=== PATIENT | male | born 1980 | race Caucasian/White ===

== ENCOUNTER 2022-09-05 07:25 | Outpatient (CLI) | payer OTHER, SELFPAY ==
--- NOTE | 2022-09-25 15:37 | WPDHOMESLEEP ---
Sleep Study - Home Unattended Date of Study: 09/05/22 Ordering Provider: CARLITOS Galloway Interpreting Provider: Marilee Moss, DO Home Sleep Study Type: Watch PAT Height: 1.83 m Weight: 104.326 kg Body Mass Index: 31.1 Neck Circumference (inches): 16.75 [place]: 12 Reason for Sleep Study Loud snoring, multiple nighttime awakenings Sleep History The patient is a 41-year-old male with anxiety, depression, hypertension, hyperlipidemia, tobacco use and previously diagnosed sleep apnea in 2009 that had a sleep study ordered by the Pulmonary group. The patient had a split night study on January 20, 2010 that showed an AHI of 54.2. He was titrated to CPAP 10 cm H2O. The patient works in [employer]. He frequently awakens from sleep short of breath. He rarely awakens at night with heartburn, belching or cough. He constantly snores loud enough that others complain. He constantly has trouble sleeping when he has a cold. He occasionally wakes up gasping for air throughout the night. He frequently has breathing problems at night observed by himself or others. He occasionally sweats excessively at night. He occasionally has heart palpitations or irregular heartbeats during the night. He rarely falls asleep during the day and never while driving. He denies sleep paralysis and cataplexy. He occasionally has trouble at school or work due to sleepiness. He rarely experiences vivid dreamlike scenes upon awakening or falling asleep. He rarely feels afraid of going to sleep. He rarely has nightmares. He rarely remembers his dreams. He occasionally has thoughts racing through his mind. He occasionally feels sad or depressed. He frequently has anxiety. He frequently has muscular tension. He denies noticing parts of his body jerk. He rarely kicks during the night. He occasionally has crawling and aching feelings in his legs. He rarely has leg pain during the night. He denies grinding his teeth during sleep and denies awakening with morning jaw pain. He is rarely bothered by pain during the day and rarely awakened by pain during the night. He occasionally wakes up feeling stiff in the morning. He occasionally wakes up with sore or achy muscles. He occasionally wakes up with pain in the neck, spine or other joints. He goes to bed at midnight on both weekdays and weekends. It takes him 15 minutes to fall asleep. He wakes up 3-4 times throughout the night to urinate and smoke. He can fall back asleep within 15 minutes. He wakes up between 7-8 a.m. on weekdays and between 9-10 a.m. on the weekends. He typically gets 6-7 hours of sleep per night. He will stay in bed for 5 minutes after waking up in the morning. He currently lives alone. He does not consume any caffeinated beverages within 2 hours of bedtime. He does not engage in physical exercise before bedtime. He will watch television before falling asleep. He will take naps in the afternoon or the evening but they are not refreshing. He drinks 2 caffeinated beverages per day. He smokes 1 pack cigarettes per day. He drinks 2 alcoholic beverages per day. He denies recreational drug use. [facility] Past Medical History Medical History BMI 33.0-33.9,adult Body mass index (bmi) 34.0-34.9, adult (11/18/18) Depression with anxiety Encounter for long-term (current) use of other medications Essential (primary) hypertension Hyperlipidemia Impingement syndrome of right shoulder NISH (obstructive sleep apnea) Tobacco use Family History Family History Mother Family history of osteoporosis Hypertension Hypophosphatasia Father Hypertension Cerebrovascular accident Social History Social History Smoking packs per day: 1 Smoking cigarettes per day: 20.0 Years smoked: 20 Smoking pack-years: 20.00 Smoking status: Current every day smoker Tobacco type: cigarettes
[2022-09-29 12:48] VITALS: BMI 31.1
--- NOTE | 2023-10-05 11:24 | SLEEP ---
pt choice inspire
== END 2022-09-06 12:45 | disposition home or self-care (01) ==
PROVIDERS: PCP Internal Medicine; Visit Provider Physician Assistant
DX: G47.33 Obstructive sleep apnea (adult) (pediatric) (principal)
CPT/HCPCS: 95800

== ENCOUNTER 2022-11-28 12:49 | Outpatient (CLI) | payer OTHER, SELFPAY ==
--- NOTE | 2022-11-28 12:51 | ECHO_ITS ---
Patient Info Name: Edy Ambriz Age: 42 years : 1980 Gender: Male Ht: 72 in Wt: 230 lbs BSA: 2.33 m2 HR: 73 bpm BP: 135 / 91 mmHg Technical Quality: Fair Exam Date: 11/28/2022 1:05 PM Exam Location: [facility] Patient Status: Outpatient Admit Date: 11/28/2022 Staff Ordering Physician: Ivette Maki PA-C Cardiology Nurse Practitioner: Morena Cerna RDCS Attending Provider: Ivette Maki PA-C Exam Type: CA echo doppler color flow Study Info Indications G47.31 - PRIMARY SLEEP APNEA Complete two-dimensional, color flow and Doppler transthoracic echocardiogram is performed. Summary 1. Complete two-dimensional, color flow and Doppler transthoracic echocardiogram is performed. 2. Left ventricular chamber dimension is normal. 3. Left ventricular systolic function is normal, estimated at 60-65%. 4. The left ventricular diastolic function is normal. 5. E/e' 7 is not elevated. 6. Global longitudinal strain is abnormal at -11.7%. 7. No pulmonary hypertension, estimated pulmonary arterial systolic pressure is 25 mmHg. Left Ventricle E/e' 7 is not elevated. Global longitudinal strain is abnormal at -11.7%. Left ventricular chamber dimension is normal. Left ventricular systolic function is normal, estimated at 60-65%. The left ventricular diastolic function is normal. Right Ventricle Right ventricular systolic function is normal and with normal TAPSE 1.9 cm. Right ventricular chamber dimension is normal. Left Atria Left atrial chamber dimension is normal. Right Atria Right atrial chamber dimension is normal. Aortic Valve The aortic valve is trileaflet. There is no aortic valve stenosis. There is no aortic valve regurgitation. Pulmonic Valve There is no pulmonic regurgitation. Mitral Valve There is no mitral valve stenosis. There is no mitral valve regurgitation. Tricuspid Valve There is no tricuspid valve regurgitation. No pulmonary hypertension, estimated pulmonary arterial systolic pressure is 25 mmHg. Pericardium/Pleural There is no pericardial effusion. Inferior Vena Cava Normal inferior vena cava with >50% collapse upon inspiration consistent with normal right atrial pressure, 5 mmHg. Aorta The aortic root size at the sinus of Valsalva is normal. Left Ventricular Outflow Tract Name Value Normal LVOT 2D LVOT Diameter 2.0 cm LVOT Doppler LVOT Peak Gradient 4 mmHg LVOT Mean Gradient 3 mmHg LVOT VTI 20 cm LVOT VTI/AV VTI Ratio 0.8 LVOT Stroke Volume 59 ml LVOT CO 4.4 l/min LVOT CI 1.9 l/min/m2 Pulmonic Valve Name Value Normal RVOT Doppler RVOT Peak Gradient 2 mmHg PV
== END 2022-11-28 12:50 | disposition home or self-care (01) ==
LOC: ANHCARD 12:50
PROVIDERS: PCP Internal Medicine; Visit Provider Physician Assistant
DX: G47.31 Primary central sleep apnea (principal); G47.33 Obstructive sleep apnea (adult) (pediatric)
CPT/HCPCS: 93306

== ENCOUNTER 2024-09-03 12:07 | Outpatient (CLI) | payer OTHER, SELFPAY ==
[2024-09-03 15:11] LABS: Strep Group A RT-PCR NOT DETECTED (Negative)
== END 2024-09-03 12:08 | disposition home or self-care (01) ==
PROVIDERS: PCP Nurse Practitioner Family; Visit Provider Nurse Practitioner Family
DX: J02.9 Acute pharyngitis, unspecified (principal)
CPT/HCPCS: 87651